=== PATIENT | female | born 1950 | race Caucasian/White ===

== ENCOUNTER 2019-10-02 05:00 | Day surgery (SDC) | payer MEDICARE, BC ==
[2019-10-01 15:19] LABS: BASOPHILS 0.8 % (0-2); EOSINOPHILS 2.8 % (0-7); HEMOGLOBIN 13.7 g/dL (12-16); IMMATURE GRANULOCYTES 0.2 % (0-5); LYMPHOCYTES 40.6 % (15-50); MCH 30.7 pg (26.0-34.0); MCHC 33.4 g/dL (31.0-37.0); MCV 91.9 fL (80.0-100.0); MEAN PLATELET VOLUME 10.4 fL (7.4-10.4); MONOCYTES 8.7 % (2-11); NEUTROPHILS 46.9 % (40-80); PLATELET COUNT 268 10x3/uL (130-400); RBC 4.46 10x6/uL (4.00-5.40); RDW 13.1 % (11.5-14.5); WBC 6.4 10x3/uL (4.8-10.8)
[2019-10-01 15:30] LABS: PROTIME 13.2 SECONDS (11.6-15.0)
[2019-10-01 15:31] LABS: APTT 26.6 SECONDS (22.8-39.4)
[~2019-10-02] VITALS: Ht 160 cm; Wt 63.5 kg
--- NOTE | ~2019-10-02 | OP ---
PATIENT NAME: TIARRA DIGGS MEDICAL RECORD: [id number] :54 LOCATION:D.OPS ADMISSION DATE: SURGEON: KARLI MONTOYA DPM DATE OF OPERATION: 10/02/2019 PREOPERATIVE DIAGNOSES: 1. Hallux abductovalgus, left foot. 2. Instability, left first met cuneiform joint. POSTOPERATIVE DIAGNOSES: 1. Hallux abductovalgus, left foot. 2. Instability, left first met cuneiform joint. PROCEDURES: 1. Kearns bunionectomy, left foot. 2. First met cuneiform joint fusion, left foot. ANESTHESIA: General with local infiltration utilizing lidocaine and Marcaine plain around the first ray of the left foot. HEMOSTASIS: Left thigh tourniquet at 350 mmHg. PREOPERATIVE DETAILS: The patient was taken to the OR and placed on the operating table in supine position. This was followed by induction of general anesthesia and infiltration of local anesthetic. The left extremity was then prepped and draped in the usual aseptic technique followed by exsanguination and inflation of tourniquet. PROCEDURE #1: Kaerns bunionectomy, left foot: A 15-blade was used to create an incision from the dorsal aspect of the medial cuneiform distally to the base of the proximal phalanx of the hallux. The incision was deepened down through subcutaneous tissue to the first MPJ where an inverted L capsulotomy was performed. The medial capsular flap was reflected and the head of the first metatarsal was delivered. A sagittal saw was used to resect the medial eminence. Attention was then directed to the first interspace where a lateral release was performed. PROCEDURE #2: First met cuneiform joint fusion, left foot. The incision as described in one was carried down through the deep tissue to the periosteum and periosteal incision was made. The first met cuneiform joint was delivered. A sagittal saw was used to resect the joint. Temporary fixation was placed. Excellent alignment was noted and a 5-hole plate with one screw crossing through the plate, across the fusion site was placed under excellent rigid internal fixation verifying good placement as well as alignment utilizing C-arm. Wound was flushed. The first MPJ as well as the periosteum was closed with 2-0 Vicryl, the subcutaneous tissue with 4-0 Rapide and the skin was closed with 4-0 Rapide in a subcuticular technique followed by Dermabond. Adaptic, 4 x 4 and Conform were used to dress the wound followed by application of a modified Donnelly compression dressing. The tourniquet was deflated. POSTOPERATIVE DETAILS: The patient tolerated procedure well and left the OR with vital signs stable and vascular status at preoperative levels. The patient was transported to recovery per anesthesia in stable condition. 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
[~2019-10-02 05:00] MED LIST: CALCIUM 500 +1 EAC3 PO; LEVOTHYROXINE50 MCG PO; MULTI-DAY VITAM1 TAB PO
[2019-10-02 06:09] VITALS: BP 96/60; Ht 160 cm; Wt 63.5 kg
--- NOTE | 2019-10-02 09:57 | NUR ---
DC INSTRUCTIONS GIVEN TO PT/SPOUSE. STATE UNDERSTANDING. DC'D IV CATH FULLY INTACT.
--- NOTE | 2019-10-02 10:34 | NUR ---
PT LEFT UNIT VIA WC AT 1017
== END 2019-10-02 10:17 | disposition home or self-care (01) ==
LOC: D.OPS 05:00 → D.PAN 07:00 → D.OPS 07:00
PROVIDERS: Anesthesiology; ATTEND Podiatrist
DX: M20.12 Hallux valgus (acquired), left foot (principal); M25.375 Other instability, left foot